=== PATIENT | male | born 1965 | race Caucasian/White ===

== ENCOUNTER 2021-10-12 09:00 | Inpatient (IN) ==
[2021-10-12 09:56] LABS: Basophils # 0.1 10*3/uL (0.0-0.2); Basophils % 0.6 % (0.0-0.8); Eosinophils # 0.1 10*3/uL (0.0-0.87); Eosinophils % 1.2 % (0.00-10.9); Hematocrit 40.8 VOL% (42.0-52.0); Hemoglobin 13.6 GM/DL (14.0-18.0); Immature Granulocytes % 0.5 %; Immature Granulocytes Absolute 0.05 #; Lymphocytes # 1.2 10*3/uL (1.4-4.0); Lymphocytes % 12.3 % (21.2-54.2); Mean Corpuscular HGB Conc 33.3 GM/DL (32-36); Mean Corpuscular Volume 86.6 FL (87-102); Mean Platelet Volume 9.3 FL (9.6-12.0); Monocytes # 0.8 10*3/uL (0.11-0.8); Monocytes % 8.4 % (1.7-12.7); Platelet Count 255 T/CUMM (130-400); Red Blood Count 4.71 MC/CUMM (3.8-5.5); Red Cell Distribution Width 12.4 % (9.3-17.3); White Blood Count 9.5 T/CUMM (4-12)
[2021-10-12 10:17] LABS: Alanine Aminotransferase 24 U/L (16-61); Albumin 2.8 G/DL (3.4-5.0); Alkaline Phosphatase 111 U/L (45-117); Aspartate Amino Transferase 13 U/L (0-37); Bilirubin,Total < 0.39 MG/DL (0.20-1.00); Blood Urea Nitrogen 12 MG/DL (7-18); Calcium 9.8 MG/DL (8.5-10.1); Carbon Dioxide 24 MMOL/L (21-32); Chloride 97 MMOL/L (98-107); Osmolality,Calculated 288.8 MOS/KG (273-304); Potassium 4.3 MMOL/L (3.5-5.1); Sodium 130 MMOL/L (136-145); Total Protein 7.8 G/DL (6.4-8.2)
[2021-10-12 10:23] LABS: Glucose 626 MG/DL (74-106)
[2021-10-12] MEDS ORDERED: SODIUM CHLORIDE 0.9% 1,000 ML IV STA (10:23)
[2021-10-12] MEDS ORDERED: CLINDAMYCIN INJ 900 MG/50 ML PREMIX IV STA (10:35)
[2021-10-12] MEDS ORDERED: CIPROFLOXACIN INJ 400 MG/200 ML PREMIX IV ONE (10:57)
[2021-10-12] MEDS ORDERED: INSULIN REGULAR 100 UNIT/ML IV STA (10:57)
[2021-10-12] MEDS ORDERED: GLUCAGON 1 MG VIAL IM PRN (11:01)
[2021-10-12] MEDS ORDERED: hydrALAZINE 20 MG/1 ML VIAL IV PRN (11:01)
[2021-10-12] MEDS ORDERED: ALUMINUM/MAGNES/SIMETH MAX STR 30 ML UDCUP PO PRN (11:01)
[2021-10-12] MEDS ORDERED: ONDANSETRON 4 MG/2 ML VIAL IV PRN ×2 (11:01→15:57)
[2021-10-12] MEDS ORDERED: LACTULOSE 20 GM/30 ML UDCUP PO PRN (11:01)
[2021-10-12] MEDS ORDERED: DOCUSATE SODIUM 100 MG CAPSULE PO PRN (11:01)
[2021-10-12] MEDS ORDERED: ACETAMINOPHEN 325 MG TABLET PO PRN (11:01)
[2021-10-12] MEDS ORDERED: DEXTROSE 10% 250 ML BAG IV PRN (11:06)
[2021-10-12] MEDS ORDERED: INSULIN GLARGINE 100 UNIT/ML SUBCUT SCH (11:06)
[2021-10-12] MEDS ORDERED: INSULIN REGULAR 100 UNIT/ML SUBCUT SCH (11:30)
[2021-10-12] MEDS ORDERED: MAGNESIUM SULF RIDER 4 GM/100 ML PREMIX IV PRN (11:36)
[2021-10-12] MEDS ORDERED: MAGNESIUM SULF RIDER 2 GM/50 ML PREMIX IV PRN (11:36)
[2021-10-12] MEDS ORDERED: SODIUM CHLORIDE 0.9% 1,000 ML IV ONE (13:16)
[2021-10-12] MEDS ORDERED: DIPH/TET/ACEL PERT BOOSTER VACCINE 0.5 ML VIAL IM ONE (14:04)
[2021-10-12] MEDS ORDERED: ETOMIDATE 40 MG/20 ML VIAL IV ONE (14:29)
[2021-10-12] MEDS ORDERED: DEXAMETHASONE 4 MG/1 ML VIAL ONE (14:29)
[2021-10-12] MEDS ORDERED: LIDOCAINE 2% 5 ML VIAL ONE (14:29)
[2021-10-12] MEDS ORDERED: SUCCINYLCHOLINE 200 MG/10 ML VIAL ONE (14:29)
[2021-10-12] MEDS ORDERED: ONDANSETRON 4 MG/2 ML VIAL ONE (14:29)
[2021-10-12] MEDS ORDERED: propofoL 200 MG/20 ML VIAL IV ONE (14:29)
[2021-10-12] MEDS ORDERED: fentaNYL 100 MCG/2 ML VIAL ONE (14:30)
[2021-10-12] MEDS ORDERED: MIDAZOLAM 2 MG/2 ML VIAL ONE (14:30)
[2021-10-12] MEDS ORDERED: ROCURONIUM 50 MG/5 ML VIAL IV ONE (14:32)
[2021-10-12 15:12] LABS: Calcium 8.9 MG/DL (8.5-10.1); Osmolality,Calculated 293.4 MOS/KG (273-304); Potassium 4.1 MMOL/L (3.5-5.1)
[2021-10-12] MEDS ORDERED: SEVOFLURANE 1 UNIT/15 MINUTE INH ONE ×2 (15:19→15:48)
[2021-10-12] MEDS ORDERED: CLINDAMYCIN IV ONE (15:23)
[2021-10-12] MEDS ORDERED: HYDROmorphone 1 MG/1 ML SYRINGE ONE (15:57)
[2021-10-12] MEDS ORDERED: HYDROmorphone 1 MG/1 ML SYRINGE IV PRN (15:57)
[2021-10-12] MEDS: INSULIN REGULAR 100 UNIT/ML SUBCUT SCH ×2 (16:56→21:59)
[2021-10-12] MEDS: CLINDAMYCIN INJ 600 MG/50 ML PREMIX IV SCH (17:02)
[2021-10-12] MEDS: SODIUM CHLORIDE 0.9% 1,000 ML IV SCH (17:24)
[2021-10-12] MEDS: ENALAPRIL 5 MG TABLET PO SCH (21:19)
[2021-10-12] MEDS: ASPIRIN CHEW 81 MG TABLET PO SCH (21:19)
[2021-10-12] MEDS: SERTRALINE 100 MG TABLET PO SCH (21:19)
[2021-10-12] MEDS: ROSUVASTATIN 10 MG TABLET PO SCH (21:19)
[2021-10-12] MEDS: carvediloL 3.125 MG TABLET PO SCH (21:19)
[2021-10-12] MEDS: CIPROFLOXACIN 500 MG TABLET PO SCH (21:20)
[2021-10-12] MEDS ORDERED: CIPROFLOXACIN INJ 400 MG/200 ML PREMIX IV SCH (22:00)
[2021-10-12] MEDS: FENOFIBRATE 160 MG TABLET PO SCH (22:01)
[2021-10-13] MEDS: INSULIN REGULAR 100 UNIT/ML SUBCUT SCH ×7 (00:42→20:01)
[2021-10-13] MEDS: CLINDAMYCIN INJ 600 MG/50 ML PREMIX IV SCH ×3 (01:58→18:28)
[2021-10-13] MEDS: SODIUM CHLORIDE 0.9% 1,000 ML IV SCH ×2 (03:46→14:24)
[2021-10-13 05:05] LABS: Basophils % 0.4 % (0.0-0.8); Eosinophils # 0.1 10*3/uL (0.0-0.87); Eosinophils % 0.5 % (0.00-10.9); Hematocrit 36.4 VOL% (42.0-52.0); Immature Granulocytes % 0.6 %; Immature Granulocytes Absolute 0.06 #; Lymphocytes # 1.2 10*3/uL (1.4-4.0); Lymphocytes % 11.6 % (21.2-54.2); Mean Corpuscular Volume 87.7 FL (87-102); Mean Platelet Volume 9.3 FL (9.6-12.0); Monocytes # 0.8 10*3/uL (0.11-0.8); Monocytes % 7.6 % (1.7-12.7); Neutrophils % 79.3 % (38.7-73.9); Platelet Count 226 T/CUMM (130-400); Red Blood Count 4.15 MC/CUMM (3.8-5.5); Red Cell Distribution Width 12.1 % (9.3-17.3); White Blood Count 10.2 T/CUMM (4-12)
[2021-10-13 05:29] LABS: Alanine Aminotransferase 30 U/L (16-61); Albumin 2.4 G/DL (3.4-5.0); Alkaline Phosphatase 93 U/L (45-117); Aspartate Amino Transferase 17 U/L (0-37); Bilirubin,Total < 0.39 MG/DL (0.20-1.00); Blood Urea Nitrogen 12 MG/DL (7-18); Calcium 8.3 MG/DL (8.5-10.1); Carbon Dioxide 25 MMOL/L (21-32); Chloride 104 MMOL/L (98-107); Cholesterol 205 MG/DL (50-200); Glucose 298 MG/DL (74-106); HDL Cholesterol 23 MG/DL (40-60); Osmolality,Calculated 283.8 MOS/KG (273-304); Potassium 4.1 MMOL/L (3.5-5.1); Risk Ratio 8.91; Sodium 137 MMOL/L (136-145); Thyroid Stimulating Hormone 0.363 uIU/ml (0.358-3.74); Total Protein 6.9 G/DL (6.4-8.2); Triglycerides 210 MG/DL (2-150)
[2021-10-13] MEDS ORDERED: INSULIN NPH 100 UNIT/ML SUBCUT SCH ×3 (08:00→17:00)
[2021-10-13] MEDS: CIPROFLOXACIN 500 MG TABLET PO SCH ×2 (09:15→20:00)
[2021-10-13] MEDS: PANTOPRAZOLE 40 MG TABLET PO SCH (09:15)
[2021-10-13] MEDS: metFORMIN 500 MG TABLET PO SCH (16:34)
[2021-10-13] MEDS: ASPIRIN CHEW 81 MG TABLET PO SCH (20:00)
[2021-10-13] MEDS: carvediloL 3.125 MG TABLET PO SCH (20:00)
[2021-10-13] MEDS: ENALAPRIL 5 MG TABLET PO SCH (20:00)
[2021-10-13] MEDS: SERTRALINE 100 MG TABLET PO SCH (20:00)
[2021-10-13] MEDS: ROSUVASTATIN 10 MG TABLET PO SCH (20:00)
[2021-10-13] MEDS: FENOFIBRATE 160 MG TABLET PO SCH (20:00)
[2021-10-14] MEDS: SODIUM CHLORIDE 0.9% 1,000 ML IV SCH ×5 (00:11→22:40)
[2021-10-14] MEDS: CLINDAMYCIN INJ 600 MG/50 ML PREMIX IV SCH ×3 (01:59→17:55)
[2021-10-14] MEDS: INSULIN REGULAR 100 UNIT/ML SUBCUT SCH ×4 (08:27→21:05)
[2021-10-14] MEDS: CIPROFLOXACIN 500 MG TABLET PO SCH ×2 (08:27→20:59)
[2021-10-14] MEDS: metFORMIN 500 MG TABLET PO SCH ×2 (08:27→16:50)
[2021-10-14] MEDS: INSULIN NPH 100 UNIT/ML SUBCUT SCH (08:27)
[2021-10-14] MEDS: PANTOPRAZOLE 40 MG TABLET PO SCH (08:27)
[2021-10-14 08:47] LABS: Basophils % 0.4 % (0.0-0.8); Eosinophils # 0.2 10*3/uL (0.0-0.87); Eosinophils % 2.1 % (0.00-10.9); Hematocrit 36.9 VOL% (42.0-52.0); Hemoglobin 12.2 GM/DL (14.0-18.0); Immature Granulocytes % 0.7 %; Immature Granulocytes Absolute 0.05 #; Lymphocytes # 1.8 10*3/uL (1.4-4.0); Lymphocytes % 25.6 % (21.2-54.2); Mean Corpuscular HGB Conc 33.1 GM/DL (32-36); Mean Corpuscular Volume 87.2 FL (87-102); Mean Platelet Volume 8.8 FL (9.6-12.0); Monocytes # 0.5 10*3/uL (0.11-0.8); Monocytes % 7.4 % (1.7-12.7); Neutrophils % 63.8 % (38.7-73.9); Platelet Count 214 T/CUMM (130-400); Red Blood Count 4.23 MC/CUMM (3.8-5.5); Red Cell Distribution Width 12.5 % (9.3-17.3)
[2021-10-14 09:13] LABS: Calcium 8.7 MG/DL (8.5-10.1); Potassium 4.2 MMOL/L (3.5-5.1)
[2021-10-14] MEDS: MORPHINE 2 MG/1 ML SYRINGE IV PRN ×2 (11:37→21:01)
[2021-10-14] MEDS ORDERED: INSULIN NPH 100 UNIT/ML SUBCUT SCH (17:00)
[2021-10-14] MEDS: FENOFIBRATE 160 MG TABLET PO SCH (21:00)
[2021-10-14] MEDS: ROSUVASTATIN 10 MG TABLET PO SCH (21:00)
[2021-10-14] MEDS: SERTRALINE 100 MG TABLET PO SCH (21:00)
[2021-10-14] MEDS: carvediloL 3.125 MG TABLET PO SCH (21:00)
[2021-10-14] MEDS: ENALAPRIL 5 MG TABLET PO SCH (21:00)
[2021-10-14] MEDS: ASPIRIN CHEW 81 MG TABLET PO SCH (21:00)
[2021-10-14] MEDS: ZALEPLON 5 MG CAPSULE PO PRN (22:41)
[2021-10-15] MEDS: CLINDAMYCIN INJ 600 MG/50 ML PREMIX IV SCH ×3 (01:05→17:16)
[2021-10-15] MEDS: CIPROFLOXACIN 500 MG TABLET PO SCH ×2 (08:25→21:35)
[2021-10-15] MEDS: INSULIN REGULAR 100 UNIT/ML SUBCUT SCH ×4 (08:26→21:35)
[2021-10-15] MEDS: PANTOPRAZOLE 40 MG TABLET PO SCH (08:26)
[2021-10-15] MEDS: INSULIN NPH 100 UNIT/ML SUBCUT SCH (08:26)
[2021-10-15] MEDS: metFORMIN 500 MG TABLET PO SCH ×2 (08:26→16:06)
[2021-10-15] MEDS: MORPHINE 2 MG/1 ML SYRINGE IV PRN ×2 (08:27→20:49)
[2021-10-15] MEDS ORDERED: INSULIN NPH 100 UNIT/ML SUBCUT SCH (17:00)
[2021-10-15] MEDS: FENOFIBRATE 160 MG TABLET PO SCH (21:35)
[2021-10-15] MEDS: carvediloL 3.125 MG TABLET PO SCH (21:35)
[2021-10-15] MEDS: ENALAPRIL 5 MG TABLET PO SCH (21:35)
[2021-10-15] MEDS: ROSUVASTATIN 10 MG TABLET PO SCH (21:35)
[2021-10-15] MEDS: SERTRALINE 100 MG TABLET PO SCH (21:36)
[2021-10-15] MEDS: ZALEPLON 5 MG CAPSULE PO PRN (21:36)
[2021-10-15] MEDS: ASPIRIN CHEW 81 MG TABLET PO SCH (21:36)
[2021-10-15] MEDS: SODIUM CHLORIDE 0.9% 1,000 ML IV SCH ×2 (22:37→22:55)
[2021-10-16] MEDS: CLINDAMYCIN INJ 600 MG/50 ML PREMIX IV SCH ×2 (01:04→09:00)
[2021-10-16 05:09] LABS: Basophils # 0.1 10*3/uL (0.0-0.2); Basophils % 0.6 % (0.0-0.8); Eosinophils # 0.2 10*3/uL (0.0-0.87); Hematocrit 37.9 VOL% (42.0-52.0); Hemoglobin 12.6 GM/DL (14.0-18.0); Immature Granulocytes Absolute 0.08 #; Lymphocytes # 1.6 10*3/uL (1.4-4.0); Lymphocytes % 19.3 % (21.2-54.2); Mean Corpuscular HGB Conc 33.2 GM/DL (32-36); Mean Corpuscular Volume 87.1 FL (87-102); Mean Platelet Volume 9.1 FL (9.6-12.0); Monocytes # 0.7 10*3/uL (0.11-0.8); Monocytes % 8.7 % (1.7-12.7); Neutrophils % 68.4 % (38.7-73.9); Platelet Count 234 T/CUMM (130-400); Red Blood Count 4.35 MC/CUMM (3.8-5.5); Red Cell Distribution Width 12.4 % (9.3-17.3); White Blood Count 8.4 T/CUMM (4-12)
[2021-10-16 05:26] LABS: Osmolality,Calculated 282.4 MOS/KG (273-304); Potassium 3.7 MMOL/L (3.5-5.1)
[2021-10-16] MEDS: MORPHINE 2 MG/1 ML SYRINGE IV PRN (07:51)
[2021-10-16] MEDS ORDERED: INSULIN NPH 100 UNIT/ML SUBCUT SCH (08:00)
[2021-10-16] MEDS: metFORMIN 500 MG TABLET PO SCH (08:51)
[2021-10-16] MEDS: INSULIN REGULAR 100 UNIT/ML SUBCUT SCH ×2 (08:51→11:46)
[2021-10-16] MEDS: PANTOPRAZOLE 40 MG TABLET PO SCH (08:51)
[2021-10-16] MEDS: CIPROFLOXACIN 500 MG TABLET PO SCH (08:51)
[2021-10-16] MEDS: SODIUM CHLORIDE 0.9% 1,000 ML IV SCH (10:31)
[2021-10-16 10:37] VITALS: BP 136/67
[2021-10-16] MEDS ORDERED: MAGNESIUM OXIDE 400 MG TABLET PO ONE (10:57)
== END 2021-10-16 12:20 | disposition home or self-care (01) | DRG 988 ==
LOC: N.ED 09:00 → N.EDINP 11:02 → SUATTDRO 11:02 → N.3E 12:08
PROVIDERS: ADMIT Internal Medicine; ATTEND Internal Medicine